=== PATIENT | female | born 1975 | race Caucasian/White ===

== ENCOUNTER 2018-11-12 18:18 | Emergency (ER) | payer BC ==
[~2018-11-12] VITALS: Ht 172.7 cm; Wt 72.6 kg
--- NOTE | 2018-11-12 18:40 | NUR ---
CAME IN FOR SEVERE NECK PAIN X 1.5HRS, "POSS PULLED MUSCLE NEAR SHOULDER/NECK AREA". TO ER BED 1, HOOKED TO MONITOR, PROVIDED W WARM BLANKET, AWAITING MD HINOJOSA.
--- NOTE | 2018-11-12 18:41 | NUR ---
DR HDEZ AT BEDSIDE
--- NOTE | 2018-11-12 18:52 | NUR ---
WHEELED OUT VIA WHEELCHAIR TO CT SCAN
[2018-11-12] MEDS ORDERED: KETOROLAC TROMETHAMINE INJ 60 MG/2 ML VIAL IM ONE (19:00)
[2018-11-12] MEDS ORDERED: KETOROLAC TROMETHAMINE INJ 30 MG/ML VIAL ONE (19:00)
[2018-11-12] MEDS ORDERED: HYDROCODONE/APAP 5/325MG 1 EACH TABLET ONE (19:11)
--- NOTE | 2018-11-12 19:27 | NUR ---
REPORT GIVEN TO TAMERA FOR JUMA
[2018-11-12] MEDS ORDERED: HYDROCODONE/APAP 5/325MG 1 EACH TABLET PO ONE (19:30)
[2018-11-12 20:46] VITALS: BP 120/77
== END 2018-11-12 20:47 | disposition home or self-care (01) ==
LOC: ER 18:22
DX: S13.4XXA Sprain of ligaments of cervical spine, initial encounter (principal); M50.21 Other cervical disc displacement, high cervical region; Z60.2 Problems related to living alone; X58.XXXA Exposure to other specified factors, initial encounter; Y93.89 Activity, other specified; Y92.89 Other specified places as the place of occurrence of the external cause; Y99.8 Other external cause status
CPT/HCPCS: 71045; 72125; 73030; 99284; L0172; J1885

== ENCOUNTER 2018-11-21 20:16 | Emergency (ER) | payer BC ==
[~2018-11-21] VITALS: Ht 170.2 cm; Wt 52.6 kg
[2018-11-21] MEDS ORDERED: IPRATROPIUM NEB FS 0.5 MG/2.5 ML AMPUL.NEB NEB ONE (20:30)
[2018-11-21] MEDS ORDERED: ALBUTEROL FS 2.5 MG/3 ML VIAL.NEB NEB ONE (20:30)
--- NOTE | 2018-11-21 20:31 | NUR ---
BIB [facility] FOR C/O SOB, ANXIETY AND EPIGASTRIC PAIN. SEEN BY MD WITH AN ORDER FOR BREATHING TX. RT MADE AWARE, PLACED ON MONITOR, 100% O2 SAT ON R/A. WILL CONT TO MONITOR ,
[2018-11-21] MEDS ORDERED: IPRATROPIUM NEB FS 0.5 MG/2.5 ML AMPUL.NEB ONE (20:35)
[2018-11-21] MEDS ORDERED: ALBUTEROL FS 2.5 MG/3 ML VIAL.NEB ONE (20:35)
--- NOTE | 2018-11-21 20:52 | NUR ---
AT THE BED SIDE
--- NOTE | 2018-11-21 21:02 | NUR ---
VERBAL ORDER FROM DR. VAN GABAPENTIN 300MG CAPSULE PO X ONE.
[2018-11-21] MEDS ORDERED: GABAPENTIN 300 MG CAPSULE ONE (21:04)
--- NOTE | 2018-11-21 21:28 | NUR ---
PT'S CAME TO THE NURSE'S STATION TO ASK THE DR TO COME SEE THE PT.
[2018-11-21] MEDS ORDERED: GABAPENTIN 100 MG CAPSULE PO ONE (21:30)
--- NOTE | 2018-11-21 21:30 | NUR ---
DR VAN IS AT THE BEDSIDE SPEAKING TO THE PT.
--- NOTE | 2018-11-21 21:40 | NUR ---
Patient discharged to home in stable condition. Written and verbal after care instructions given. Patient verbalizes understanding of instruction. was adviced no to drive. picked her up and will give her ride.
[2018-11-21 22:08] VITALS: BP 106/56
== END 2018-11-21 21:40 | disposition home or self-care (01) ==
LOC: ER 20:17
DX: J45.909 Unspecified asthma, uncomplicated (principal); F41.9 Anxiety disorder, unspecified; Z60.2 Problems related to living alone

== ENCOUNTER 2018-11-30 20:13 | Emergency (ER) ==
[~2018-11-30] VITALS: Ht 172.7 cm; Wt 54.4 kg
--- NOTE | 2018-11-30 20:25 | NUR ---
PATIENT PRESENTS TO ER WITH C/O INTERMITTENT EPIGASTRIC PAIN RADIATING TO MID STERNAL, C/O PAIN 02/17, DR. BARRERA AT BEDSIDE EVALUTATING PT. 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 PT ON MONITOR AND CONT. PULSE OX, [address] UPON ARRIVAL .
--- NOTE | 2018-11-30 20:26 | NUR ---
DR BARRERA IS AT THE BEDSIDE SPEAKING TO THE PT.
[2018-11-30] MEDS ORDERED: LORAZEPAM INJ 2 MG/ML VIAL IV ONE (20:30)
[2018-11-30] MEDS ORDERED: IV NS 0.9% 500 ML BAG IV ONE (20:30)
[2018-11-30 20:36] LABS: BASOPHILS # (AUTO) 0.1 /CMM (0.0-0.2); BASOPHILS % (AUTO) 0.7 % (0.0-2.0); EOSINOPHILS % (AUTO) 0.5 % (0.0-6.0); HEMATOCRIT 44 % (33-45); HEMOGLOBIN 15.1 g/dL (11.5-14.8); LYMPHOCYTES # (AUTO) 3.4 /CMM (0.8-4.8); LYMPHOCYTES % (AUTO) 37.4 % (20.0-44.0); MEAN CORPUSCULAR HGB CONC 35 g/dl (31.0-36.0); MEAN CORPUSCULAR VOLUME 90 fL (82-100); MONOCYTES # (AUTO) 0.5 /CMM (0.1-1.30); MONOCYTES % (AUTO) 5.3 % (2.0-12.0); NEUTROPHILS # (AUTO) 5.1 /CMM (1.8-8.9); NEUTROPHILS % (AUTO) 56.1 % (43.0-81.0); PLATELET COUNT (AUTO) 264 /CMM (150-450); RED BLOOD CELL COUNT(AUTO) 4.88 MIL/uL (4.0-5.2); WHITE BLOOD COUNT (AUTO) 9.1 K/uL (4.3-11.0)
[2018-11-30] MEDS ORDERED: LORAZEPAM INJ 2 MG/ML VIAL ONE (20:36)
[2018-11-30 20:53] LABS: CALCIUM, SERUM 9.5 mg/dL (8.5-10.1); CARBON DIOXIDE 22 mmol/L (21-32); CHLORIDE 104 mmol/L (98-107); CREATININE 0.9 mg/dL (0.6-1.3); GLUCOSE 105 mg/dL (74-106); POTASSIUM 3.7 mmol/L (3.5-5.1); SODIUM SERUM 140 mmol/L (136-145); UREA NITROGEN, BLOOD 8 mg/dL (7-18)
[2018-11-30] MEDS ORDERED: KETOROLAC TROMETHAMINE INJ 30 MG/ML VIAL IV ONE (21:00)
[2018-11-30] MEDS ORDERED: KETOROLAC TROMETHAMINE INJ 30 MG/ML VIAL ONE (21:03)
[2018-11-30 21:04] LABS: ALANINE AMINOTRANSFERASE 24 U/L (12-78); ALBUMIN 4.5 g/dL (3.4-5.0); ALKALINE PHOSPHATASE 34 U/L (46-116); ASPARTATE AMINOTRANSFERASE 14 U/L (15-37); BILIRUBIN,DIRECT 0.1 mg/dL (0.0-0.2); BILIRUBIN,TOTAL 0.5 mg/dL (0.2-1.0); TOTAL PROTEIN, SERUM 7.7 g/dL (6.4-8.2)
--- NOTE | 2018-11-30 21:35 | NUR ---
PT STATES PAIN "5/10 TO MIDSTERNAL/EPIGASTRIC AREA, FEELS HEAVY". PT APPEARS CALM STATES" MEDICATION WAS HELPFUL".
--- NOTE | 2018-11-30 21:49 | NUR ---
IV removed. Catheter intact and site benign. Pressure and 4x4 applied to site. No bleeding noted. Patient discharged to home in stable condition. Written and verbal after care instructions given. Patient verbalizes understanding of instruction AND RX. PT'S BOYFRIEND IS DRIVING PT HOME. VSS. PT WAS INSTRUCTED NOT TO DRIVE. PT AMBULATED OUT WITH A STEADY GAIT.
[2018-11-30 21:55] VITALS: BP 124/78
== END 2018-11-30 21:53 | disposition home or self-care (01) ==
LOC: ER 20:15
DX: R10.13 Epigastric pain (principal); R07.89 Other chest pain; F41.9 Anxiety disorder, unspecified; F12.90 Cannabis use, unspecified, uncomplicated; Z60.2 Problems related to living alone
CPT/HCPCS: 36415; 71045; 80048; 80076; 84484; 85025; 93005; 96374; 96375; 99284; J1885; J2060; J7040

== ENCOUNTER 2019-08-25 10:46 | Emergency (ER) | payer BC ==
[~2019-08-25] VITALS: Ht 172.7 cm; Wt 53.1 kg
--- NOTE | 2019-08-25 10:57 | NUR ---
facial swelling and throat tightness for months, pt awake, alert, -sob, nad noted, vss, pending md christensen
[2019-08-25] MEDS ORDERED: IV NS 0.9% 500 ML BAG IV ONE (11:30)
[2019-08-25] MEDS ORDERED: methylPREDNISolone SOD SUCC 125 MG/2ML VIAL IV ONE (11:30)
[2019-08-25] MEDS ORDERED: diphenhydrAMINE HCL 50 MG/ML VIAL IV ONE (11:30)
[2019-08-25] MEDS ORDERED: FAMOTIDINE/PF INJ 40 MG in IV D5W 250 ML IV ONE (11:30)
[2019-08-25] MEDS ORDERED: diphenhydrAMINE HCL 50 MG/ML VIAL ONE (11:54)
[2019-08-25] MEDS ORDERED: methylPREDNISolone SOD SUCC 125 MG/2ML VIAL ONE (11:54)
[2019-08-25] MEDS ORDERED: FAMOTIDINE/PF INJ 20 MG/2 ML VIAL IV ONE (11:55)
[2019-08-25 12:02] LABS: BASOPHILS % (AUTO) 0.7 % (0.0-2.0); EOSINOPHILS % (AUTO) 1.2 % (0.0-6.0); HEMATOCRIT 45 % (33-45); HEMOGLOBIN 14.7 g/dL (11.5-14.8); LYMPHOCYTES # (AUTO) 1.4 /CMM (0.8-4.8); LYMPHOCYTES % (AUTO) 31.8 % (20.0-44.0); MEAN CORPUSCULAR HGB CONC 33 g/dl (31.0-36.0); MEAN CORPUSCULAR VOLUME 89 fL (82-100); MONOCYTES # (AUTO) 0.4 /CMM (0.1-1.30); MONOCYTES % (AUTO) 9.2 % (2.0-12.0); NEUTROPHILS # (AUTO) 2.5 /CMM (1.8-8.9); NEUTROPHILS % (AUTO) 57.1 % (43.0-81.0); PLATELET COUNT (AUTO) 241 /CMM (150-450); WHITE BLOOD COUNT (AUTO) 4.4 K/uL (4.3-11.0)
[2019-08-25 12:11] LABS: CALCIUM, SERUM 9.5 mg/dL (8.5-10.1); CREATININE 0.8 mg/dL (0.6-1.3); POTASSIUM 4.3 mmol/L (3.5-5.1)
[2019-08-25 13:00] VITALS: BP 130/75
--- NOTE | 2019-08-25 13:39 | NUR ---
Patient discharged to home in stable condition. Written and verbal after care instructions given. Patient verbalizes understanding of instruction. IV removed. Catheter intact and site benign. Pressure and 4x4 applied to site. No bleeding noted.
== END 2019-08-25 13:56 | disposition home or self-care (01) ==
LOC: ER 10:50
DX: T78.40XA Allergy, unspecified, initial encounter (principal); Z60.2 Problems related to living alone; X58.XXXA Exposure to other specified factors, initial encounter
CPT/HCPCS: 36415; 80048; 85025; 96374; 96375; 99284; J1200; J2930; J3490; J7040

== ENCOUNTER 2024-09-29 19:11 | Emergency (ER) | payer BC, OTHER ==
[~2024-09-29] VITALS: Ht 170.2 cm; Wt 55.3 kg
[2024-09-29] MEDS ORDERED: ONDANSETRON HCL/PF 4 MG/2 ML VIAL ONE (19:59)
[2024-09-29] MEDS ORDERED: FAMOTIDINE (20 MG) 20 MG TABLET ONE (20:00)
[2024-09-29] MEDS ORDERED: MAG HYDROX/AL HYDROX/SIMETH 30 ML UDC ONE (20:00)
[2024-09-29] MEDS: IV NS 0.9% 1,000 ML BAG IV ONE (20:11)
[2024-09-29] MEDS: ONDANSETRON HCL/PF 4 MG/2 ML VIAL IVP ONE (20:12)
[2024-09-29 20:13] LABS: BASOPHILS % (AUTO) 0.1 % (0.0-2.0); HEMOGLOBIN 15.1 g/dL (11.5-14.8); MONOCYTES # (AUTO) 0.3 K/uL (0.1-1.30)
[2024-09-29] MEDS: MAG HYDROX/AL HYDROX/SIMETH 30 ML UDC PO ONE (20:13)
[2024-09-29] MEDS: FAMOTIDINE (20 MG) 20 MG TABLET PO ONE (20:13)
[2024-09-29 20:19] LABS: HEMATOCRIT 44 % (33-45); LYMPHOCYTES # (AUTO) 0.5 K/uL (0.8-4.8); MEAN CORPUSCULAR HEMOGLOBIN 31 PG (26.0-33.0); MEAN CORPUSCULAR HGB CONC 34 g/dl (31.0-36.0); MEAN CORPUSCULAR VOLUME 90 fL (82-100); NEUTROPHILS # (AUTO) 9.8 K/uL (1.8-8.9); NEUTROPHILS % (AUTO) 91.9 % (43.0-81.0); PLATELET COUNT (AUTO) 219 K/uL (150-450); RED BLOOD CELL COUNT(AUTO) 4.85 MIL/uL (4.0-5.2); RED CELL DISTRIBUTION WIDTH 13.2 % (11.5-15.0); WHITE BLOOD COUNT (AUTO) 10.7 K/uL (4.3-11.0)
[2024-09-29 20:20] LABS: CALCIUM, SERUM 9.7 mg/dL (8.5-10.1); CREATININE 0.7 mg/dL (0.6-1.3); POTASSIUM 3.9 mmol/L (3.5-5.1)
[2024-09-29 20:26] LABS: ALBUMIN 4.5 g/dL (3.4-5.0); BILIRUBIN,DIRECT 0.2 mg/dL (0.0-0.2); BILIRUBIN,TOTAL 0.9 mg/dL (0.2-1.0); TOTAL PROTEIN, SERUM 7.9 g/dL (6.4-8.2)
[2024-09-29 21:03] LABS: APPEARANCE,URINE CLEAR (CLEAR); BILIRUBIN,URINE NEGATIVE (NEGATIVE); BLOOD, URINE NEGATIVE Ery/uL (NEGATIVE); COLOR,URINE YELLOW (YELLOW); KETONES,URINE 3+ mg/dL (NEGATIVE); LEUKOCYTE ESTERASE ,URINE NEGATIVE (NEGATIVE); NITRITE, URINE NEGATIVE (NEGATIVE); PH,URINE 7.5 (5.0-8.0); PROTEIN,URINE 1+ mg/dl (NEGATIVE); UGLUCOSE NEGATIVE (NEGATIVE); UROBILINOGEN,URINE 0.2 EU/dL (0.2)
[2024-09-29 21:05] LABS: PREGNANCY TEST URINE QUAL NEGATIVE (NEGATIVE)
[2024-09-29 21:13] LABS: RBC,URINE 0-2 /HPF (0-2)
[2024-09-29 21:14] LABS: ADD URINE CULTURE YES; BACTERIA,URINE 2+ /HPF (None Seen)
[2024-09-29] MEDS ORDERED: CEPH-570 PO (21:37)
[2024-09-29] MEDS ORDERED: MAG355OR18 PO (21:37)
[2024-09-29] MEDS ORDERED: ONDA4TAB11 PO (21:37)
[2024-09-29] MEDS ORDERED: FAMO20TA80 PO (21:38)
[2024-09-29] MEDS: ONDANSETRON 4 MG TAB.RAPDIS PO ONE (21:53)
[2024-09-29] MEDS ORDERED: ONDANSETRON 4 MG TAB.RAPDIS ONE (21:54)
[2024-09-29 22:08] VITALS: BP 128/93; TEMP 98; O2SAT 98
== END 2024-09-29 22:12 | disposition home or self-care (01) ==
LOC: ER 19:14
DX: N39.0 Urinary tract infection, site not specified (principal); R11.2 Nausea with vomiting, unspecified; R10.13 Epigastric pain; F17.200 Nicotine dependence, unspecified, uncomplicated; J45.909 Unspecified asthma, uncomplicated
CPT/HCPCS: 99284; 96374; 96361; 85025; 80048; 87086; 83690; 80076; 84703; 81001; 36415; J2405; J7030; Q0162